=== PATIENT | male | born 1995 | race Caucasian/White ===

== ENCOUNTER 2023-10-03 08:27 | Emergency (ER) | payer OTHER ==
--- NOTE | 2023-10-03 09:02 | ED Physician Documentation ---
PD HPI CHEST PAIN - Stated complaint Stated Complaint: LT ABD PX,CHEST PX - Chief complaint Chief Complaint: Cardiac - History obtained from History obtained from: Patient - Additional information Additional information: Patient is a 28-year-old male, active [employer], presenting for evaluation of left-sided chest pain. He states that started 3 days ago while at rest. It was initially intermittent but has become more constant since last night. It feels like something is poking him. He reports it feels better if he puts pressure and holds that area of his chest. It does not radiate elsewhere. He has also noted intermittent pains in the left arm and left leg over the past few days but those pains have resolved since last night. No recent illness with fever cough or congestion. No shortness of air. No history of PE or DVT. No recent Surgery or immobilization. Patient goes to the gym once a week and last went on Friday without any issues. Patient went to the walk-in clinic yesterday and they obtained a swab for RSV and COVID as they told him he was too young for any cardiac issues. He reports no other testing was done. He states that his father has a history of MIs in his 40s. Patient does vape. He uses alcohol regularly with approximately 3 beers a day. No other illicit substances. Review of Systems Constitutional: denies: Fever Cardiac: reports: Chest pain / pressure Respiratory: denies: Dyspnea GI: denies: Abdominal Pain, Vomiting Musculoskeletal: denies: Back pain Neurologic: denies: Headache PD PAST MEDICAL HISTORY - Past Medical History Past Medical History: No - Past Surgical History Past Surgical History: No - Present Medications Home Medications: Ambulatory Orders Medication Instructions Recorded Confirmed No Known Home Medications 10/03/23 10/03/23 - Allergies Allergies/Adverse Reactions: Allergies Allergy/AdvReac Type Severity Reaction Status Date / Time No Known Drug Allergies Allergy Verified 10/03/23 08:41 - Social History Does the pt smoke?: No Smoking Status: Current every day smoker Does the pt drink ETOH?: Yes Does the pt have substance abuse?: No - Immunizations Immunizations are current?: Yes - POLST Patient has POLST: No PD ED PE NORMAL - General General: Alert and oriented X 3, No acute distress, Well developed/nourished - HEENT HEENT: Atraumatic - Neck Neck: Supple, no meningeal sign - Cardiac Cardiac: RRR, Strong equal pulses, Other (Left-sided chest wall tenderness to p alpation with no deformities, rash or crepitus) - Respiratory Respiratory: No respiratory distress, Clear bilaterally - Abdomen Abdomen: Normal bowel sounds, Soft, Non tender, Non distended - Derm Derm: Warm and dry - Extremities Extremities: No edema, No calf tenderness / cord - Neuro Neuro: Normal speech Results - Vitals Vitals: Vital Signs - 24 hr 10/03/23 10/03/23 10/03/23 08:34 09:17 10:03 Temperature 36.8 C Heart Rate 89 74 71 Respiratory 18 19 18 Rate Blood Pressure 148/89 H 124/79 123/76 O2 Saturation 98 96 97 Oxygen O2 Source Room air - EKG (time done) 0847 EKG releavant findings:: EKG personally interpreted by author of this note. Relevant findings are: Rate 74, normal sinus rhythm, no STEMI, QTc 419 - Labs Labs: Laboratory Tests 10/03/23 10/03/23 09:01 09:01 WBC 4.1 L RBC 4.94 Hgb 14.7 Hct 44.3 MCV 89.7 MCH 29.8 MCHC 33.2 RDW 12.3 Plt Count 321 MPV 9.4 Neut # (Auto) 1.8 Lymph # (Auto) 1.6 Fisher # (Auto) 0.5 Eos # (Auto) 0.1 Baso # (Auto) 0.0 Absolute Nucleated RBC 0.00 Nucleated RBC % 0.0 Sodium 140 Potassium 3.8 Chloride 105 Carbon Dioxide 27 Anion Gap 8.0 BUN 9 Creatinine 1.3 Estimated GFR (MDRD) 67 L Glucose 80 Calcium 9.1 Total Bilirubin 0.4 AST 26 ALT 33 Alkaline Phosphatase 74 Troponin I High Sens 2.7 Total Protein 7.4 Albumin 4.7 Globulin 2.7 Albumin/Globulin Ratio 1.7 Lipase 14 PD Medical Decision Making - ED course Complexity details: reviewed results, d/w patient ED course: Patient is a 28-year-old male with No significant past medical history presenting for evaluation of constant left-sided chest pain. Pain seems atypical for ACS. PERC negative. EKG is reviewed.CBC, chemistries and troponin were obtained and reviewed and without significant findings. Creatinine 1.3 with GFR of 67 which I did discuss with the patient and encouraged increased hydration. Chest x-ray which I reviewed is negative for cardiomegaly, effusion or consolidation. Patient is concerned low risk for ACS based on the heart score. Discussed need for outpatient follow-up as well as concerning symptoms to return for.Doubt dissection as pain is not migratory and again patient does not have any known risk factors for this. Departure - Departure Disposition: 01 Home, Self Care Clinical Impression: Chest pain Condition: Stable Instructions: ED Chest Pain Atypical Unkn Cause Follow-Up: JESSE Mckenna [Provider Group] Comments: Your testing today does not show signs of a heart attack. Your chest x-ray is a lso clear with a normal heart size. I would recommend close follow-up with your primary care provider regarding your symptoms today. I did want to mention that your kidney tests, your creatinine was at the upper limit of normal at 1.3. I would recommend increasing your hydration for the next few days and also decreasing your alcohol use As well as following up with your primary care provider. Return to the emergency department with any new or worsening symptoms. Forms: PCP List Discharge Date/Time: 10/03/23 10:05
[2023-10-03 09:09] LABS: BASOPHILS % (AUTO) 0.5 %; EOSINOPHILS # (AUTO) 0.1 10^3/uL (0.0-0.7); EOSINOPHILS % (AUTO) 2.5 %; HCT - HEMATOCRIT 44.3 % (42.0-52.0); HGB - HEMOGLOBIN 14.7 g/dL (14.0-18.0); LYMPHOCYTES # (AUTO) 1.6 10^3/uL (1.5-3.5); MEAN CORPUSCULAR HEMOGLOBIN 29.8 pg (27.0-31.0); MEAN CORPUSCULAR HGB CONC 33.2 g/dL (32.0-36.0); MEAN CORPUSCULAR VOLUME 89.7 fL (80.0-94.0); MEAN PLATELET VOLUME 9.4 fL (7.4-11.4); MONOCYTES # (AUTO) 0.5 10^3/uL (0.0-1.0); MONOCYTES % (AUTO) 12.1 %; NEUTROPHILS # (AUTO) 1.8 10^3/uL (1.5-6.6); NEUTROPHILS % (AUTO) 44.9 %; PLT - PLATELET COUNT 321 10^3/uL (130-450); RED BLOOD COUNT 4.94 10^6/uL (4.70-6.10); RED CELL DISTRIBUTION WIDTH 12.3 % (12.0-15.0); WHITE BLOOD COUNT 4.1 x10^3/uL (4.8-10.8)
[2023-10-03 09:36] LABS: ALBUMIN 4.7 g/dL (3.2-5.5); ALBUMIN/GLOBULIN RATIO 1.7 (1.0-2.2); BILIRUBIN,TOTAL 0.4 mg/dL (0.2-1.0); CALCIUM 9.1 mg/dL (8.5-10.3); CREATININE 1.3 mg/dL (0.6-1.3); POTASSIUM 3.8 mmol/L (3.5-4.5); TOTAL PROTEIN 7.4 g/dL (6.4-8.9); TROPONIN I HIGH SENSITIVITY 2.7 ng/L (2.3-19.7)
--- NOTE | 2023-10-03 09:38 | XRAY Report ---
PROCEDURE: Chest 1V INDICATIONS: L sided CP TECHNIQUE: One view of the chest was acquired. COMPARISON: None. FINDINGS: Surgical changes and devices: None. Lungs and pleura: No pleural effusions or pneumothorax. Lungs are clear. Mediastinum: Mediastinal contours appear normal. Heart size is normal. Bones and chest wall: No suspicious bony lesions. Overlying soft tissues appear unremarkable. IMPRESSION: No acute cardiopulmonary process. Reviewed by: Lorena Marsh MD on 10/03/2023 9:37 AM [facility] Approved by: Lorena Marsh MD on 10/03/2023 9:37 AM [facility] Station ID: [id number]
[2023-10-03 10:12] VITALS: BP 123/76; O2SAT 97
== END 2023-10-03 10:05 | disposition home or self-care (01) ==
LOC: ED 08:27
DX: R07.9 Chest pain, unspecified (principal); F17.200 Nicotine dependence, unspecified, uncomplicated
CPT/HCPCS: 36415; 80053; 83690; 84484; 85025; 93005; 99283; 99284